=== PATIENT | male | born 1965 | race Caucasian/White ===

== ENCOUNTER → 2016-06-23 | Outpatient (CLI) | payer OTHER ==
[~2016-06-23] MED LIST: ACET-1138 PO; ASPEC81 PO; GLIM4TAB2 PO; LISI-461 PO; OXYC1TAB3 PO
[2016-06-23 17:37] LABS: HEMATOCRIT 45.2 % (42-52); MEAN CELL VOLUME 90.6 fL (80-100); MEAN CORPUSCULAR HEMOGLOBIN 30.1 pg (25-34); MEAN CORPUSCULAR HGB CONC 33.2 g/dl (32-36); MEAN PLATELET VOLUME 10.5 fL (7.4-10.4); PLATELET COUNT 287 K/uL (130-400); RED BLOOD COUNT 4.99 M/uL (4.7-6.1); WHITE BLOOD COUNT 8.05 K/uL (4.8-10.8)
[2016-06-23 17:47] LABS: ALT/SGPT 69 U/L (12-78); BLOOD UREA NITROGEN 14 mg/dl (7-18); BUN/CREATININE RATIO 13.9 (10-20); CALCIUM 8.9 mg/dl (8.5-10.1); CARBON DIOXIDE 20 mmol/L (21-32); CHLORIDE 106 mmol/L (98-107); CHOLESTEROL 173 mg/dl (0-200); GLUCOSE 227 mg/dl (70-99); SODIUM 139 mmol/L (136-145)
[2016-06-23 17:58] LABS: ALB/GLOB RATIO 0.9 (0.9-2); ALKALINE PHOSPHATASE 60 U/L (45-117); AST/SGOT 43 U/L (15-37); CHOLESTEROL/HDL RATIO 4.9; HDL CHOLESTEROL 35 mg/dl; LDL CHOLESTEROL CALCULATED 104 mg/dl; TRIGLYCERIDES 169 mg/dl (0-150); VERY LOW DENSITY LIPOPROT CALC 34 mg/dl
[2016-06-24 05:50] LABS: ESTIMATED AVERAGE GLUCOSE 272 mg/dl; HA1C FLAG Normal (Normal)
== END | disposition home or self-care (01) ==
LOC: C.LABBFT 13:28
PROVIDERS: ATTEND Internal Medicine
DX: E11.29 Type 2 diabetes mellitus with other diabetic kidney complication (principal)

== ENCOUNTER → 2016-08-27 | Outpatient (CLI) | payer OTHER ==
--- NOTE | 2016-08-27 15:45 | DIAGNOSTIC IMAGING REPORT ---
RIGHT LOWER EXTREMITY VENOUS DOPPLER HISTORY: Right leg pain and swelling. COMPARISON STUDY: None. FINDINGS: There is normal compressibility, flow, and augmentation within the right lower extremity deep venous system. IMPRESSION: No DVT within the right lower extremity Electronically signed by: Chava Solis M.D. 08/27/2016 3:43 PM Dictated Date/Time: 08/27/2016 3:43 PM
== END | disposition home or self-care (01) ==
LOC: C.ULTR 15:02
PROVIDERS: ATTEND Internal Medicine
DX: M79.604 Pain in right leg (principal); M79.89 Other specified soft tissue disorders

== ENCOUNTER → 2016-12-31 | Outpatient (CLI) | payer OTHER ==
[2016-12-31 17:32] LABS: HEMATOCRIT 48.7 % (42-52); MEAN CELL VOLUME 94.7 fL (80-100); MEAN CORPUSCULAR HEMOGLOBIN 30.7 pg (25-34); MEAN CORPUSCULAR HGB CONC 32.4 g/dl (32-36); MEAN PLATELET VOLUME 10.4 fL (7.4-10.4); PLATELET COUNT 288 K/uL (130-400); RED BLOOD COUNT 5.14 M/uL (4.7-6.1)
[2016-12-31 17:43] LABS: ALT/SGPT 53 U/L (12-78); AST/SGOT 20 U/L (15-37); BLOOD UREA NITROGEN 19 mg/dl (7-18); BUN/CREATININE RATIO 18.8 (10-20); CALCIUM 8.8 mg/dl (8.5-10.1); CARBON DIOXIDE 24 mmol/L (21-32); CHLORIDE 104 mmol/L (98-107); CREATININE 0.99 mg/dl (0.60-1.40); GLUCOSE 244 mg/dl (70-99); POTASSIUM 4.3 mmol/L (3.5-5.1); SODIUM 135 mmol/L (136-145)
[2016-12-31 17:53] LABS: ALB/GLOB RATIO 0.8 (0.9-2); ALKALINE PHOSPHATASE 72 U/L (45-117); CHOLESTEROL 162 mg/dl (0-200); CHOLESTEROL/HDL RATIO 5.2; HDL CHOLESTEROL 31 mg/dl; LDL CHOLESTEROL CALCULATED 100 mg/dl; PROSTATE SPECIFIC ANTIGEN 0.162 ng/ml (0.000-4.000); TRIGLYCERIDES 156 mg/dl (0-150); VERY LOW DENSITY LIPOPROT CALC 31 mg/dl
[2017-01-01 06:51] LABS: ESTIMATED AVERAGE GLUCOSE 272 mg/dl; HA1C FLAG Normal (Normal)
== END | disposition home or self-care (01) ==
LOC: C.LABBFT 12:47
PROVIDERS: ATTEND Internal Medicine
DX: E11.29 Type 2 diabetes mellitus with other diabetic kidney complication (principal); Z12.5 Encounter for screening for malignant neoplasm of prostate

== ENCOUNTER → 2017-05-02 | Outpatient (CLI) | payer OTHER ==
[2017-05-02 18:23] LABS: ALT/SGPT 52 U/L (12-78); BLOOD UREA NITROGEN 16 mg/dl (7-18); BUN/CREATININE RATIO 16.6 (10-20); CALCIUM 8.9 mg/dl (8.5-10.1); CARBON DIOXIDE 23 mmol/L (21-32); CHLORIDE 105 mmol/L (98-107); CHOLESTEROL 186 mg/dl (0-200); CREATININE 0.98 mg/dl (0.60-1.40); GLUCOSE 155 mg/dl (70-99); SODIUM 135 mmol/L (136-145); TRIGLYCERIDES 135 mg/dl (0-150); VERY LOW DENSITY LIPOPROT CALC 27 mg/dl
[2017-05-02 18:31] LABS: RATIO 73.4 mcg/mg (0-30.0)
[2017-05-02 18:33] LABS: ALB/GLOB RATIO 0.9 (0.9-2); ALKALINE PHOSPHATASE 55 U/L (45-117); AST/SGOT 26 U/L (15-37); HDL CHOLESTEROL 31 mg/dl; LDL CHOLESTEROL CALCULATED 128 mg/dl
[2017-05-03 07:39] LABS: ESTIMATED AVERAGE GLUCOSE 223 mg/dl; HA1C FLAG Normal (Normal)
== END | disposition home or self-care (01) ==
LOC: C.LABBFT 12:33
PROVIDERS: ATTEND Internal Medicine
DX: E11.29 Type 2 diabetes mellitus with other diabetic kidney complication (principal); E11.65 Type 2 diabetes mellitus with hyperglycemia

== ENCOUNTER 2020-04-27 15:08 | Inpatient (IN) ==
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
[2020-04-27 15:54] LABS: Basophils # (auto) 0.03 K/uL (0-0.2); Basophils % (auto) 0.3 %; Eosinophils # (auto) 0.54 K/uL (0-0.5); Eosinophils % (auto) 4.6 %; Hematocrit (blood only) 43.6 % (42-52); Hemoglobin 14.6 g/dL (14.0-18.0); Immature Granulocytes # (auto) 0.03 K/uL (0.00-0.02); Immature Granulocytes % (auto) 0.3 %; Lymphocytes # (auto) 2.36 K/uL (1.2-3.4); Lymphocytes % (auto) 20.1 %; Mean Corpuscular Hemoglobin 31.2 pg (25-34); Mean Corpuscular Hgb Conc 33.5 g/dL (32-36); Mean Corpuscular Volume 93.2 fL (80-100); Mean Platelet Volume 10.1 fL (7.4-10.4); Monocytes # (auto) 0.88 K/uL (0.11-0.59); Monocytes % (auto) 7.5 %; Neutrophils % (auto) 67.2 %; Platelet Count 281 K/uL (130-400); RDW Coefficient of Variation 13.3 % (11.5-14.5); RDW Standard Deviation 45.1 fL (36.4-46.3); Red Blood Count 4.68 M/uL (4.7-6.1); White Blood Count 11.74 K/uL (4.8-10.8)
[2020-04-27 16:10] LABS: Blood Urea Nitrogen 14 mg/dl (7-18); Carbon Dioxide 25 mmol/L (21-32); Chloride 107 mmol/L (98-107); Sodium 138 mmol/L (136-145)
[2020-04-27 16:11] LABS: Alanine Aminotransferase 23 U/L (12-78); Albumin Level 3.2 gm/dl (3.4-5.0); Aspartate Aminotransferase 14 U/L (15-37); BUN Creatinine Ratio 11.7 (10-20); Est GFR (Non-African American) 70.7; Glucose 231 mg/dl (70-99); INR 1.2 (0.9-1.1); Magnesium 1.9 mg/dl (1.8-2.4); Partial Thromboplastin Time 28.8 Seconds (21.0-31.0); Prothrombin Time 12.1 Seconds (9.0-12.0)
[2020-04-27 16:13] LABS: Albumin Globulin Ratio 0.7 (0.9-2); Alkaline Phosphatase 71 U/L (45-117); Bilirubin,Total 1.2 mg/dl (0.2-1); Globulin 4.5 gm/dl (2.5-4.0); Total Protein 7.7 gm/dl (6.4-8.2)
--- NOTE | 2020-04-27 16:59 | Ultrasound Report ---
RIGHT LOWER EXTREMITY VENOUS DOPPLER HISTORY: R leg pain COMPARISON STUDY: Right leg venous Doppler 01/19/2019. FINDINGS: The right common femoral vein is patent. There is occlusive thrombus seen within the right superficial femoral and popliteal veins. There is also thrombus seen within the majority of the right calf vessels. IMPRESSION: Extensive right lower extremity deep vein thrombosis described above which has progressed in the inte rval. ACT 112: Negative or not required by law. Electronically signed by: Chava Solis M.D. 04/27/2020 4:57 PM
[2020-04-27] MEDS ORDERED: OPTIRAY 320 125ml IV ONE (18:03)
--- NOTE | 2020-04-27 18:47 | CT Scan Report ---
CHEST CTA for PULMONARY ARTERIES CT DOSE: 878.10 mGy.cm HISTORY: Evaluate for pulmonary embolus. Shortness of breath. extensive DVT TECHNIQUE: Multiaxial CT images of the chest were performed following the intravenous administration of contrast to evaluate the pulmonary arteries. Maximal intensity projection images were also obtaine d. A dose lowering technique was utilized adhering to the principles of ALARA. COMPARISON STUDY: None. FINDINGS: Limited views of the upper abdomen demonstrate a normal liver, spleen, and adrenal glands. No pleural or pericardial effusions. There is flattening of the interventricular septum consistent wi th right-sided heart strain. There is extensive bilateral pulmonary emboli most pronounced on the rig ht. There is a saddle embolus involving the main pulmonary arteries. No suspicious lytic or blastic o sseous lesions. No mediastinal hilar lymphadenopathy. Normal esophagus. Normal caliber thoracic aorta with no evidence for dissection. No pneumothorax. The central airways appear patent. A few small re ear scarlike densities within the right upper lobe anteriorly. Otherwise, the lungs are clear. No mati dence for pulmonary infarction at this time. IMPRESSION: Extensive bilateral pulmonary emboli including a saddle embolus at the main pulmonary arteries. There is associated right heart strain. ACT 112: Negative or not required by law. Electronically signed by: Chava Solis M.D. 04/27/2020 6:46 PM
[2020-04-27] MEDS ORDERED: Heparin IV Adult Wt-Based Standard WITH Bolus Protocol IV STA (19:15)
--- NOTE | 2020-04-27 20:12 | Emergency Department Note ---
ED Visit Note The patient was seen and examined with Carlos Merino PA-C I agree with the history, physical and findings. Please see the note for disposition and d etails. Patient being evaluated by internal medicine. Critical care consulted for his saddle PE and extensive DVT. Vital signs stable. Troponin normal. .
[2020-04-27] MEDS ORDERED: HEPARIN SOD (PORCINE) 1000 UNIT/ML 10 ML VIAL ONE (20:32)
[2020-04-27] MEDS: HEPARIN SODIUM/DEXTROSE 25,000 UNITS/500 ML BAG IV SCH (20:55)
[2020-04-27] MEDS ORDERED: CARBOHYDRATES FOR HYPOGLYCEMIA PO PRN (21:39)
[2020-04-27] MEDS ORDERED: ONDANSETRON INJ 2 MG/ML 2 ML VIAL IV PRN (21:39)
[2020-04-27] MEDS ORDERED: GLUCOSE 40% GEL 15 GM TUBE PO PRN (21:39)
[2020-04-27] MEDS ORDERED: GLUCAGON FOR INJ 1 MG VIAL SQ PRN (21:39)
[2020-04-27] MEDS ORDERED: GLUCOSE 10 TABS/TUBE PO PRN (21:39)
[2020-04-27] MEDS ORDERED: DEXTROSE 50% 50 ML SYRINGE IV PRN (21:39)
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
[2020-04-27] MEDS: lisinopril 10 MG TAB PO SCH (22:19)
[2020-04-27] MEDS: SILDENAFIL CITRATE 20 MG TABLET PO SCH (22:19)
[2020-04-27] MEDS: INSULIN ASPART 100 UNITS/ML 3 ML PEN SC SCH (22:22)
[2020-04-28 03:39] LABS: Basophils # (auto) 0.03 K/uL (0-0.2); Basophils % (auto) 0.2 %; Eosinophils # (auto) 0.54 K/uL (0-0.5); Eosinophils % (auto) 4.5 %; Hematocrit (blood only) 42.7 % (42-52); Immature Granulocytes # (auto) 0.03 K/uL (0.00-0.02); Immature Granulocytes % (auto) 0.2 %; Lymphocytes % (auto) 29.8 %; Mean Corpuscular Hemoglobin 30.4 pg (25-34); Mean Corpuscular Hgb Conc 32.8 g/dL (32-36); Mean Corpuscular Volume 92.8 fL (80-100); Mean Platelet Volume 9.9 fL (7.4-10.4); Monocytes # (auto) 0.88 K/uL (0.11-0.59); Monocytes % (auto) 7.3 %; Neutrophils # (auto) 7.02 K/uL (1.4-6.5); Platelet Count 282 K/uL (130-400); RDW Coefficient of Variation 13.3 % (11.5-14.5); RDW Standard Deviation 45.3 fL (36.4-46.3)
[2020-04-28 03:51] LABS: INR 1.2 (0.9-1.1); Partial Thromboplastin Ratio 1.4; Partial Thromboplastin Time 39.6 Seconds (21.0-31.0); Prothrombin Time 12.1 Seconds (9.0-12.0)
[2020-04-28 03:56] LABS: Albumin Level 2.9 gm/dl (3.4-5.0); BUN Creatinine Ratio 11.8 (10-20); Calcium 8.7 mg/dl (8.5-10.1); Creatinine Clr Calc Pharmacy 88.7 ml/min; Est GFR (African American) 86.5; Est GFR (Non-African American) 74.6; Magnesium 2.3 mg/dl (1.8-2.4); Potassium 3.9 mmol/L (3.5-5.1)
[2020-04-28 04:01] LABS: Albumin Globulin Ratio 0.7 (0.9-2); Bilirubin,Total 0.8 mg/dl (0.2-1); Globulin 4.3 gm/dl (2.5-4.0); Total Protein 7.2 gm/dl (6.4-8.2); Troponin I 0.018 ng/ml (0-0.045)
[2020-04-28] MEDS: oxyCODONE HCL IR 5 MG TAB (IMMEDIATE RELEASE) PO PRN ×2 (05:44→20:15)
[2020-04-28] MEDS ORDERED: HYDROmorphone INJ 0.5 MG/0.5 ML SYR IV STA (05:51)
[2020-04-28] MEDS ORDERED: HYDROmorphone INJ 0.5 MG/0.5 ML SYR ONE (05:53)
[2020-04-28 06:52] LABS: Estimated Average Glucose 243 mg/dl; Hemoglobin A1C 10.1 % (4.5-5.6)
[2020-04-28] MEDS ORDERED: INSULIN HUMAN 70% NPH/30% REGULAR SQ SCH (08:00)
[2020-04-28] MEDS: INSULIN ASPART 100 UNITS/ML 3 ML PEN SC SCH ×4 (08:49→20:18)
[2020-04-28] MEDS: SILDENAFIL CITRATE 20 MG TABLET PO SCH ×3 (08:55→20:17)
[2020-04-28] MEDS ORDERED: PHARMACY GLYCEMIC MGMT CONSULT PRN (09:11)
--- NOTE | 2020-04-28 09:19 | Pulmonary Consultation ---
Date of Consultation April 28, 2020 Assessment & Plan (1) Saddle pulmonary embolus: (2) DVT (deep venous thrombosis): (3) Pulmonary hypertension: Impression: 54-year-old male with right lower extremity DVT and associated PE. The clot burden is high however the patient is hemodynamically stable with normal blood pressure. He is not tachycardic and is requiring minimal amount of oxygen. He never had any respiratory symptoms currently. No indication for systemic thrombolysis. Recommendations: 1. PE: Clot burden identified on the CT scan does not correlate with prognosis and given the patient's excellent hemodynamics and lack of elevated troponin, would favor continued management with heparin infusion. He can transition to oral anticoagulants within the next 24 to 48 hours based on clinical stability. Given the fact that this is his second event in this event appears to be relatively unprovoked, would favor lifelong anticoagulation. 2. DVT: It appears that this is a chronic finding so there is no indication for catheter-based thrombolysis of the lower extremity DVT. He may require compression stockings and elevation of the leg. 3. We will follow-up with echocardiogram. Will check BNP to complete risk stratification. Troponins were normal. We will continue to follow with you. Please contact us if we can be of additional assistance History of Present Illness Attending Physician: Yessenia Darby MD History of Present Illness Asked by hospitalist to evaluate this patient with submassive PE. History is obtained from review electronic medical record as well as discussion with the patient. Patient is a 54-year-old male with a history of traumatic amputation of the left lower extremity. He developed an aching sharp pain in his right leg which became persistent and prompted him to seek attention in the emergency room. He was found to have extensive DVT and a CT angiogram was ordered. This revealed extensive pulmonary emboli including saddle embolus. The patient never had any respiratory complaints and specifically denies any chest pain, palpitations, syncope, or presyncope. He is not had any hemoptysis. The patient does have a history of a prior DVT about a year ago. He states this was in the setting of an acute illness with a complicated skin infection. He was treated with anticoagulants then without any significant complication but they were discontinued after several months. He has no family history of bleeding or clotting disorders that he is aware of. Allergies Allergy/AdvReac Type Severity Reaction Status Date / Time metformin AdvReac diarrhea Verified 04/27/20 18:22 Home Medications Medication Instructions Recorded Confirmed Type lisinopril 10 mg tablet 10 mg PO HS #90 tab 06/15/19 04/27/20 Rx insulin NPH and regular human 80 unit SUBCUT BIDM 04/27/20 04/27/20 History [Novolin 70/30 U-100 Insulin] oxycodone 5 mg PO .Q4-6HRS PRN 04/27/20 04/27/20 History sildenafil (pulm.hypertension) See Rx Instructions PO DAILY PRN 04/27/20 04/27/20 History Patient History Medical History (Updated 04/28/20 @ 04:05 by Yonis Styles MD) Pulmonary hypertension Uncontrolled type 2 diabetes mellitus with microalbuminuria, with long-term current use of insulin Surgical History History of hip surgery History of left lower extremity amputation Family History Mother Arthritis Depression Diabetes Father Diabetes Hypertension Lung disease Stroke Sister Diabetes Denies family history of Ovarian cancer Prostate cancer Myocardial infarction Breast cancer Colorectal cancer Social History Smoking Status: Never smoker Second Hand Exposure: No; Hx Alcohol Use: Yes Hx Substance Use: No Preferred Language: Czech Communication Ability: Effective Beliefs That Will Affect Care: None marital status: Current Living Situation: Alone current occupational status: disabled and other current occupation: on disability Other Information That Helps Us Care for You: No Feels Safe at Home: Yes Safety Concerns: Feels Safe At This Time Physical Activity Frequency: 3-4 Times per Week Assistive Devices: Walker and Wheelchair Review of Systems Review of Systems: Please refer to admission H&P. I have no additions or deletions Physical Exam Constitutional: WD/WN, vitals as above Neck: trachea midline, no thyromegaly Respiratory: normal respiratory effort, lungs clear to auscultation Cardiovascular: RRR, no murmur, no edema Gastrointestinal (Abdomen): normal bowel sounds, soft, nontender, no hepatosplenomegaly Musculoskeletal: Status post left leg amputation The right leg is slightly tender to palpation. Homans positive. No evidence of phlegmasia currently Skin: no rashes, warm and dry Neurologic: Nonfocal exam Lymphatic: no cervical lymphadenopathy Results & Data Results & Data ([facility]) Vital Signs (Past 12 Hours) Vital Signs Temp Pulse Pulse Resp BP BP Pulse Ox 04/28/20 04:27 82 21 122/79 94 04/28/20 04:00 36.6 C 04/28/20 01:55 79 18 124/85 95 04/28/20 00:55 86 19 115/83 90 04/28/20 00:00 36.8 C 04/27/20 21:46 36.8 C 91 H 17 172/99 H 96 04/27/20 21:42 36.8 C 04/27/20 21:35 91 H 21 172/99 H 92 Laboratory Results 04/28/20 03:20 04/28/20 03:[address] angiogram was independently reviewed. There are extensive filling defects in the bilateral pulmonary arteries with saddle embolus. No significant parenc hymal abnormalities identified and no significant adenopathy. Duplex ultrasound of the lower extremities from 04/27/2020 demonstrated extensive right-sided superficial femoral and popliteal clot extending into the calf. The common femoral vein is patent PG Care Time/CCT Total # of Minutes Spent Total Time Spent with Patient: Total time spent is greater than 50% in coordination of care (as documented) at patient's floor/unit and/or counseling patient: Coding Level of Care Code 41994 Office/OBS Consult Lvl 4 Diagnoses Saddle pulmonary embolus I26.92 DVT (deep venous thrombosis) I82.409 Pulmonary hypertension I27.20
[2020-04-28 10:21] LABS: Partial Thromboplastin Ratio 1.5; Partial Thromboplastin Time 41.9 Seconds (21.0-31.0)
--- NOTE | 2020-04-28 11:12 | XCELERA ---
[id number] \\[id number]
--- NOTE | 2020-04-28 13:26 | Pharmacy Report ---
Pharmacy Glycemic Short Note 2 - Date of Service April 28, 2020 - Glycemic Short BSG Results (Last 24 hours): 04/27/20 04/27/20 04/28/20 15:39 22:16 03:20 Glucose 231 H 222 H POC Glucose 207 H 04/28/20 04/28/20 07:22 11:03 Glucose POC Glucose 205 H 295 H OUTPATIENT ANTIDIABETIC REGIMEN: * 70/30 80 units BIDM * A1c: 10.1% 04/28/20 ASSESSMENT: * Patient found to have DVT and Saddle PE initiated on heparin drip (in dextrose). * BSGs have been moderately elevated since admission. It does not appear that the patient received an evening dose of insulin likely contributing to this. He did receive his home dose of 80 units 70/30 this morning. I will switch to a lantus/novolog regimen while admitted for easier titration/dose changes. Lantus scale will start tonight with dinner. I am hesitant to be too aggressive with basal insulin right away given unknown true needs with an elevated A1c. * Patient is tolerating a diet and remains on heparin infusion PLAN FOR INPATIENT GLYCEMIC CONTROL: * Hold outpatient oral diabetes medications * Basal insulin * 70/30: 80 units X 1 this morning * Lantus per scale 30,40,50 units units SQ BID (first dose at dinner time)- See MAR for details * Bolus insulin * NovoLog per scale ACHS or Q6hrs while NPO * Goal Range: Low 110 mg/dL - High 140 mg/dL * Correction Factor: 20 mg/dL/unit (was 25 for breakfast and lunch) * Nutritional / Prandial insulin per carb ratio of 1 unit per 6 grams CHO consumed (was 10 for breakfast and lunch)
--- NOTE | 2020-04-28 15:03 | Hospitalist Progress Note ---
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 He was previously treated in 01/2018 with 3 months of Eliquis This is a submassive PE, hemodynamically stable, requiring minimal amount of supplemental oxygen, troponin is negative serially Appreciate pulmonology consultation Echocardiogram with mildly decreased RV function, LVEF 60-65% Upon admission, his case was discussed with the ICU regarding possible need for directed TPA. Plan is to watch the patient on heparin, and if any acute decompensation directed TPA will be undertaken. -Continue IV heparin -Consult case management to beatty out Xarelto for him to see if his cost affordable; patient prefers not to do Coumadin as he does not want to have recurrent blood draws -Check proBNP to complete risk stratification -He will need lifelong anticoagulation-I discussed this with the patient and he did not seem too keen on the idea -Continue supplemental O2 to keep pulse ox greater than 92% (2) Bilateral pulmonary embolism: See above (3) DVT (deep venous thrombosis): Right lower extremity, extensive Continue anticoagulation as above -May require compression stockings and elevation of the leg (4) Hyperlipidemia: On no medications -Fasting lipid panel here with LDL 95, HDL 26, total cholesterol 150 (5) HTN (hypertension): Blood pressures are mildly elevated here, but he takes lisinopril for microalbuminuria in the setting of diabetes mellitus Continue lisinopril (6) Uncontrolled type 2 diabetes mellitus with microalbuminuria, with long-term current use of insulin: Significantly uncontrolled diabetes, hemoglobin A1c here is 10.1% Consult glycemic management for persistent hyperglycemia here On NPH 70/30 at home and here (7) Phantom pain after amputation of lower extremity: Continue oxycodone as needed for pain (8) Male erectile disorder of organic origin: Was prescribed sildenafil as an outpatient for ED, not for pulmonary hypertension as per patient Discontinue scheduled sildenafil here Disposition-continued stay on PCU Admission and Anticipated Discharge Date Admission Date: April 27, 2020 Subjective Patient reports feeling well, denies chest pain or shortness of breath but remains on 2 L nasal cannula. Denies nausea or vomiting. He is worried about being able to afford the anticoagulation and states that he does not want to go on Coumadin as he does not want to get frequent lab draws for INR checks. He is eating and drinking well. Review of Systems Review of Systems: All systems reviewed & are unremarkable except as noted in HPI & below Physical Exam Constitutional: WD/WN, vitals as above + obese; no acute distress Eyes: + anicteric sclerae Neck: trachea midline, no thyromegaly Respiratory: normal respiratory effort Auscultation: + crackles (Mild at bases that clears with deep inspiration); no rhonchi and no wheezes Cardiovascular: RRR, no murmur, no edema Extremities: no calf tenderness (On the right) Chest (Breasts): Chest: normal inspection of chest Gastrointestinal (Abdomen): normal bowel sounds, soft, nontender, no hepatosplenomegaly Musculoskeletal: Extremities: + extremities abnormal to inspection (Left lower extremity amputated), no cyanosis and no clubbing Skin: no rashes, warm and dry Neurologic: moves all extremities and awake; no focal motor deficits Psychiatric: A+Ox3, euthymic affect Lymphatic: no lymphedema Results & Data Results & Data ([facility]) Vital Signs (Past 12 Hours) Vital Signs Temp Pulse Pulse Resp BP Pulse Ox 04/28/20 12:00 77 04/28/20 09:00 80 19 94 04/28/20 08:00 73 13 94 04/28/20 07:27 79 22 128/95 95 04/28/20 07:00 71 15 95 04/28/20 04:27 82 21 122/79 94 04/28/20 04:00 36.6 C Laboratory Results 04/28/20 04/28/20 04/28/20 Range/Units 20:14 19:33 19:33 WBC (4.8-10.8) K/uL RBC (4.7-6.1) M/uL Hgb (14.0-18.0) g/dL Hct (42-52) % MCV (80-100) fL MCH (25-34) pg MCHC (32-36) g/dL RDW Std Deviation (36.4-46.3) fL RDW Coeff of Kathrin (11.5-14.5) % Plt Count (130-400) K/uL MPV (7.4-10.4) fL Immature Gran % (Auto) % Neut % (Auto) % Lymph % (Auto) % [place] % (Auto) % Eos % (Auto) % Baso % (Auto) % Neut # (Auto) (1.4-6.5) K/uL Lymph # (Auto) (1.2-3.4) K/uL [place] # (Auto) (0.11-0.59) K/uL Eos # (Auto) (0-0.5) K/uL Baso # (Auto) (0-0.2) K/uL Immature Gran # (Auto) (0.00-0.02) K/uL PT (9.0-12.0) Seconds INR (0.9-1.1) APTT 37.3 H (21.0-31.0) Seconds PTT Ratio 1.3 Sodium (136-145) mmol/L Potassium (3.5-5.1) mmol/L Chloride (98-107) mmol/L Carbon Dioxide (21-32) mmol/L Anion Gap (3-11) BUN (7-18) mg/dl Creatinine (0.6-1.4) mg/dl Est Cr Clr Drug Dosing ml/min Est GFR ( Amer) Est GFR (Non-Af Amer) BUN/Creatinine Ratio (10-20) Glucose (70-99) mg/dl POC Glucose 140 H (70-99) mg/dl Estimat Average Glucose mg/dl Hemoglobin A1c (4.5-5.6) % Calcium (8.5-10.1) mg/dl Magnesium (1.8-2.4) mg/dl Total Bilirubin (0.2-1) mg/dl AST (15-37) U/L ALT (12-78) U/L Alkaline Phosphatase (45-117) U/L Troponin I < 0.015 (0-0.045) ng/ml Total Protein (6.4-8.2) gm/dl Albumin (3.4-5.0) gm/dl Globulin (2.5-4.0) gm/dl Albumin/Globulin Ratio (0.9-2) Triglycerides (0-150) mg/dl Cholesterol (0-200) mg/dl LDL Cholesterol, Calc mg/dl VLDL Cholesterol, Calc mg/dl HDL Cholesterol mg/dl Cholesterol/HDL Ratio Nasal Screen MRSA (PCR) (Negative) 12/14/20 12/14/20 12/14/20 Range/Units 16:29 12:43 11:03 WBC (4.8-10.8) K/uL RBC (4.7-6.1) M/uL Hgb (14.0-18.0) g/dL Hct (42-52) % MCV (80-100) fL MCH (25-34) pg MCHC (32-36) g/dL RDW Std Deviation (36.4-46.3) fL RDW Coeff of Kathrin (11.5-14.5) % Plt Count (130-400) K/uL MPV (7.4-10.4) fL Immature Gran % (Auto) % Neut % (Auto) % Lymph % (Auto) % [place] % (Auto) % Eos % (Auto) % Baso % (Auto) % Neut # (Auto) (1.4-6.5) K/uL Lymph # (Auto) (1.2-3.4) K/uL [place] # (Auto) (0.11-0.59) K/uL Eos # (Auto) (0-0.5) K/uL Baso # (Auto) (0-0.2) K/uL Immature Gran # (Auto) (0.00-0.02) K/uL PT (9.0-12.0) Seconds INR (0.9-1.1) APTT (21.0-31.0) Seconds PTT Ratio Sodium (136-145) mmol/L Potassium (3.5-5.1) mmol/L Chloride (98-107) mmol/L Carbon Dioxide (21-32) mmol/L Anion Gap (3-11) BUN (7-18) mg/dl Creatinine (0.6-1.4) mg/dl Est Cr Clr Drug Dosing ml/min Est GFR ( Amer) Est GFR (Non-Af Amer) BUN/Creatinine Ratio (10-20) Glucose (70-99) mg/dl POC Glucose 212 H 295 H (70-99) mg/dl Estimat Average Glucose mg/dl Hemoglobin A1c (4.5-5.6) % Calcium (8.5-10.1) mg/dl Magnesium (1.8-2.4) mg/dl Total Bilirubin (0.2-1) mg/dl AST (15-37) U/L ALT (12-78) U/L Alkaline Phosphatase (45-117) U/L Troponin I < 0.015 (0-0.045) ng/ml Total Protein (6.4-8.2) gm/dl Albumin (3.4-5.0) gm/dl Globulin (2.5-4.0) gm/dl Albumin/Globulin Ratio (0.9-2) Triglycerides (0-150) mg/dl Cholesterol (0-200) mg/dl LDL Cholesterol, Calc mg/dl VLDL Cholesterol, Calc mg/dl HDL Cholesterol mg/dl Cholesterol/HDL Ratio Nasal Screen MRSA (PCR) (Negative) 04/28/20 04/28/20 04/28/20 Range/Units 09:58 07:22 03:20 WBC (4.8-10.8) K/uL RBC (4.7-6.1) M/uL Hgb (14.0-18.0) g/dL Hct (42-52) % MCV (80-100) fL MCH (25-34) pg MCHC (32-36) g/dL RDW Std Deviation (36.4-46.3) fL RDW Coeff of Kathrin (11.5-14.5) % Plt Count (130-400) K/uL MPV (7.4-10.4) fL Immature Gran % (Auto) % Neut % (Auto) % Lymph % (Auto) % [place] % (Auto) % Eos % (Auto) % Baso % (Auto) % Neut # (Auto) (1.4-6.5) K/uL Lymph # (Auto) (1.2-3.4) K/uL [place] # (Auto) (0.11-0.59) K/uL Eos # (Auto) (0-0.5) K/uL Baso # (Auto) (0-0.2) K/uL Immature Gran # (Auto) (0.00-0.02) K/uL PT (9.0-12.0) Seconds INR (0.9-1.1) APTT 41.9 H (21.0-31.0) Seconds PTT Ratio 1.5 Sodium (136-145) mmol/L Potassium (3.5-5.1) mmol/L Chloride (98-107) mmol/L Carbon Dioxide (21-32) mmol/L Anion Gap (3-11) BUN (7-18) mg/dl Creatinine (0.6-1.4) mg/dl Est Cr Clr Drug Dosing ml/min Est GFR ( Amer) Est GFR (Non-Af Amer) BUN/Creatinine Ratio (10-20) Glucose (70-99) mg/dl POC Glucose 205 H (70-99) mg/dl Estimat Average Glucose 243 mg/dl Hemoglobin A1c 10.1 H (4.5-5.6) % Calcium (8.5-10.1) mg/dl Magnesium (1.8-2.4) mg/dl Total Bilirubin (0.2-1) mg/dl AST (15-37) U/L ALT (12-78) U/L Alkaline Phosphatase (45-117) U/L Troponin I (0-0.045) ng/ml Total Protein (6.4-8.2) gm/dl Albumin (3.4-5.0) gm/dl Globulin (2.5-4.0) gm/dl Albumin/Globulin Ratio (0.9-2) Triglycerides (0-150) mg/dl Cholesterol (0-200) mg/dl LDL Cholesterol, Calc mg/dl VLDL Cholesterol, Calc mg/dl HDL Cholesterol mg/dl Cholesterol/HDL Ratio Nasal Screen MRSA (PCR) (Negative) 04/28/20 04/28/20 04/28/20 Range/Units 03:20 03:20 03:20 WBC 12.10 H (4.8-10.8) K/uL RBC 4.60 L (4.7-6.1) M/uL Hgb 14.0 (14.0-18.0) g/dL Hct 42.7 (42-52) % MCV 92.8 (80-100) fL MCH 30.4 (25-34) pg MCHC 32.8 (32-36) g/dL RDW Std Deviation 45.3 (36.4-46.3) fL RDW Coeff of Kathrin 13.3 (11.5-14.5) % Plt Count 282 (130-400) K/uL MPV 9.9 (7.4-10.4) fL Immature Gran % (Auto) 0.2 % Neut % (Auto) 58.0 % Lymph % (Auto) 29.8 % [place] % (Auto) 7.3 % Eos % (Auto) 4.5 % Baso % (Auto) 0.2 % Neut # (Auto) 7.02 H (1.4-6.5) K/uL Lymph # (Auto) 3.60 H (1.2-3.4) K/uL [place] # (Auto) 0.88 H (0.11-0.59) K/uL Eos # (Auto) 0.54 H (0-0.5) K/uL Baso # (Auto) 0.03 (0-0.2) K/uL Immature Gran # (Auto) 0.03 H (0.00-0.02) K/uL PT 12.1 H (9.0-12.0) Seconds INR 1.2 H (0.9-1.1) APTT 39.6 H (21.0-31.0) Seconds PTT Ratio 1.4 Sodium 139 (136-145) mmol/L Potassium 3.9 (3.5-5.1) mmol/L Chloride 105 (98-107) mmol/L Carbon Dioxide 27 (21-32) mmol/L Anion Gap 7.0 (3-11) BUN 13 (7-18) mg/dl Creatinine 1.10 (0.6-1.4) mg/dl Est Cr Clr Drug Dosing 88.7 ml/min Est GFR ( Amer) 86.5 Est GFR (Non-Af Amer) 74.6 BUN/Creatinine Ratio 11.8 (10-20) Glucose 222 H (70-99) mg/dl POC Glucose (70-99) mg/dl Estimat Average Glucose mg/dl Hemoglobin A1c (4.5-5.6) % Calcium 8.7 (8.5-10.1) mg/dl Magnesium 2.3 (1.8-2.4) mg/dl Total Bilirubin 0.8 (0.2-1) mg/dl AST 15 (15-37) U/L ALT 24 (12-78) U/L Alkaline Phosphatase 68 (45-117) U/L Troponin I 0.018 (0-0.045) ng/ml Total Protein 7.2 (6.4-8.2) gm/dl Albumin 2.9 L (3.4-5.0) gm/dl Globulin 4.3 H (2.5-4.0) gm/dl Albumin/Globulin Ratio 0.7 L (0.9-2) Triglycerides 145 (0-150) mg/dl Cholesterol 150 (0-200) mg/dl LDL Cholesterol, Calc 95 mg/dl VLDL Cholesterol, Calc 29 mg/dl HDL Cholesterol 26 mg/dl Cholesterol/HDL Ratio 6 Nasal Screen MRSA (PCR) (Negative) 04/27/20 04/27/20 Range/Units 22:20 22:16 WBC (4.8-10.8) K/uL RBC (4.7-6.1) M/uL Hgb (14.0-18.0) g/dL Hct (42-52) % MCV (80-100) fL MCH (25-34) pg MCHC (32-36) g/dL RDW Std Deviation (36.4-46.3) fL RDW Coeff of Kathrin (11.5-14.5) % Plt Count (130-400) K/uL MPV (7.4-10.4) fL Immature Gran % (Auto) % Neut % (Auto) % Lymph % (Auto) % [place] % (Auto) % Eos % (Auto) % Baso % (Auto) % Neut # (Auto) (1.4-6.5) K/uL Lymph # (Auto) (1.2-3.4) K/uL [place] # (Auto) (0.11-0.59) K/uL Eos # (Auto) (0-0.5) K/uL Baso # (Auto) (0-0.2) K/uL Immature Gran # (Auto) (0.00-0.02) K/uL PT (9.0-12.0) Seconds INR (0.9-1.1) APTT (21.0-31.0) Seconds PTT Ratio Sodium (136-145) mmol/L Potassium (3.5-5.1) mmol/L Chloride (98-107) mmol/L Carbon Dioxide (21-32) mmol/L Anion Gap (3-11) BUN (7-18) mg/dl Creatinine (0.6-1.4) mg/dl Est Cr Clr Drug Dosing ml/min Est GFR ( Amer) Est GFR (Non-Af Amer) BUN/Creatinine Ratio (10-20) Glucose (70-99) mg/dl POC Glucose 207 H (70-99) mg/dl Estimat Average Glucose mg/dl Hemoglobin A1c (4.5-5.6) % Calcium (8.5-10.1) mg/dl Magnesium (1.8-2.4) mg/dl Total Bilirubin (0.2-1) mg/dl AST (15-37) U/L ALT (12-78) U/L Alkaline Phosphatase (45-117) U/L Troponin I (0-0.045) ng/ml Total Protein (6.4-8.2) gm/dl Albumin (3.4-5.0) gm/dl Globulin (2.5-4.0) gm/dl Albumin/Globulin Ratio (0.9-2) Triglycerides (0-150) mg/dl Cholesterol (0-200) mg/dl LDL Cholesterol, Calc mg/dl VLDL Cholesterol, Calc mg/dl HDL Cholesterol mg/dl Cholesterol/HDL Ratio Nasal Screen MRSA (PCR) Negative (Negative) PG Care Time/CCT Total # of Minutes Spent Total Time Spent with Patient: Total time spent is greater than 50% in coordination of care (as documented) at patient's floor/unit and/or counseling patient: Coding Level of Care Code 83577 Subseq Hosp Care Lvl 3 Diagnoses Saddle pulmonary embolus I26.92 Bilateral pulmonary embolism I26.99 DVT (deep venous thrombosis) I82.409 Hyperlipidemia E78.5 HTN (hypertension) I10 Uncontrolled type 2 diabetes mellitus with microalbuminuria, with long-term current use of insulin E11.29; E11.65; R80.9; Z79.4 Phantom pain after amputation of lower extremity G54.6 Male erectile disorder of organic origin N52.9
[2020-04-28] MEDS: INSULIN GLARGINE SOLOSTAR 100 UNITS/ML 3 ML PEN SC SCH (17:01)
[2020-04-28] MEDS: HEPARIN SODIUM/DEXTROSE 25,000 UNITS/500 ML BAG IV SCH ×2 (17:48→20:04)
--- NOTE | 2020-04-28 19:35 | Electrocardiogram Report ---
Test Reason : Blood Pressure : / mmHG Vent. Rate : 081 BPM Atrial Rate : 081 BPM P-R Int : 154 ms QRS Dur : 082 ms QT Int : 386 ms P-R-T Axes : 046 -01 004 degrees QTc Int : 448 ms Poor data quality, interpretation may be adversely affected Normal sinus rhythm Normal ECG When compared with ECG of 17-JAN-2016 07:56, Criteria for Septal infarct are no longer Present Confirmed by Doug Gandara ([id number]) on 04/28/2020 7:34:50 PM Referred By: REFERRED SELF Confirmed By:Doug Gandara
[2020-04-28 19:58] LABS: Partial Thromboplastin Ratio 1.3; Partial Thromboplastin Time 37.3 Seconds (21.0-31.0)
[2020-04-28] MEDS ORDERED: HEPARIN SOD (PORCINE) 1000 UNIT/ML 10 ML VIAL ONE (20:10)
[2020-04-28] MEDS ORDERED: HEPARIN IV BOLUS 3,000 UNITS in SYRINGE 0 ML IV ONE (20:15)
[2020-04-28] MEDS: lisinopril 10 MG TAB PO SCH (20:17)
[2020-04-29 02:09] LABS: Basophils # (auto) 0.04 K/uL (0-0.2); Basophils % (auto) 0.3 %; Eosinophils # (auto) 0.54 K/uL (0-0.5); Eosinophils % (auto) 4.4 %; Hematocrit (blood only) 43.4 % (42-52); Hemoglobin 14.1 g/dL (14.0-18.0); Immature Granulocytes # (auto) 0.05 K/uL (0.00-0.02); Immature Granulocytes % (auto) 0.4 %; Lymphocytes # (auto) 3.55 K/uL (1.2-3.4); Lymphocytes % (auto) 28.7 %; Mean Corpuscular Hemoglobin 30.6 pg (25-34); Mean Corpuscular Hgb Conc 32.5 g/dL (32-36); Mean Corpuscular Volume 94.1 fL (80-100); Mean Platelet Volume 9.6 fL (7.4-10.4); Monocytes # (auto) 1.01 K/uL (0.11-0.59); Monocytes % (auto) 8.2 %; Neutrophils # (auto) 7.17 K/uL (1.4-6.5); Platelet Count 284 K/uL (130-400); RDW Coefficient of Variation 13.1 % (11.5-14.5); RDW Standard Deviation 45.4 fL (36.4-46.3); Red Blood Count 4.61 M/uL (4.7-6.1); White Blood Count 12.36 K/uL (4.8-10.8)
[2020-04-29 02:29] LABS: INR 1.1 (0.9-1.1); Partial Thromboplastin Ratio 1.9; Prothrombin Time 11.9 Seconds (9.0-12.0)
[2020-04-29 02:32] LABS: Partial Thromboplastin Time 51.9 Seconds (21.0-31.0)
[2020-04-29 03:27] LABS: Alanine Aminotransferase 22 U/L (12-78); Albumin Globulin Ratio 0.7 (0.9-2); Albumin Level 2.9 gm/dl (3.4-5.0); Alkaline Phosphatase 63 U/L (45-117); Aspartate Aminotransferase 15 U/L (15-37); BUN Creatinine Ratio 15.2 (10-20); Bilirubin,Total 0.8 mg/dl (0.2-1); Blood Urea Nitrogen 16 mg/dl (7-18); Calcium 8.8 mg/dl (8.5-10.1); Carbon Dioxide 28 mmol/L (21-32); Chloride 107 mmol/L (98-107); Creatinine Clr Calc Pharmacy 90.4 ml/min; Est GFR (African American) 88.5; Est GFR (Non-African American) 76.3; Globulin 4.2 gm/dl (2.5-4.0); Glucose 101 mg/dl (70-99); Magnesium 2.3 mg/dl (1.8-2.4); NT Pro B Type Natriuretic Pept 769 pg/ml (0-900); Potassium 3.8 mmol/L (3.5-5.1); Sodium 140 mmol/L (136-145); Total Protein 7.1 gm/dl (6.4-8.2)
[2020-04-29 03:34] LABS: Troponin I < 0.015 ng/ml (0-0.045)
--- NOTE | 2020-04-29 05:22 | Electrocardiogram Report ---
Test Reason : Blood Pressure : / mmHG Vent. Rate : 074 BPM Atrial Rate : 074 BPM P-R Int : 152 ms QRS Dur : 084 ms QT Int : 426 ms P-R-T Axes : 047 016 010 degrees QTc Int : 472 ms Normal sinus rhythm Normal ECG When compared with ECG of 27-APR-2020 19:20, No significant change was found Confirmed by Doug Gandara ([id number]) on 04/29/2020 5:22:25 AM Referred By: REFERRED SELF Confirmed By:Doug Gandara
[2020-04-29] MEDS: ACETAMINOPHEN 325 MG TAB PO PRN (06:24)
--- NOTE | 2020-04-29 08:16 | Pulmonology Progress Note ---
Date of Service April 29, 2020 Assessment & Plan (1) Saddle pulmonary embolus: (2) DVT (deep venous thrombosis): (3) Pulmonary hypertension: Impression: 54-year-old male with right lower extremity DVT and associated PE. The clot burden is high however the patient is hemodynamically stable with normal blood pressure. He is not tachycardic and is requiring minimal amount of oxygen. He never had any respiratory symptoms currently. No indication for systemic thrombolysis. Recommendations: 1. PE: Clot burden identified on the CT scan does not correlate with prognosis and given the patient's excellent hemodynamics and lack of elevated troponin, would favor continued management with heparin infusion. He can transition to oral anticoagulants within the next 24 to 48 hours based on clinical stability. Given the fact that this is his second event in this event appears to be re latively unprovoked, would recommend lifelong anticoagulation. Okay to transition to oral agents at this point in time. Correlation with case management to find a cost effective solution for the patient is recommended. Coumadin or DOAC's would be appropriate. 2. DVT: It appears that this is a chronic finding so there is no indication for catheter-based thrombolysis of the lower extremity DVT. He may require compression stockings and elevation of the leg. 3. Echo reviewed. Troponin and BNP are normal. Patient appears to be doing well clinically. Will sign off at this point time. Please feel free to contact us if we can be of additional assistance. Admission and Anticipated Discharge Date Admission Date: April 27, 2020 Subjective Patient seen and examined. He offers no complaints. He specifically denies any chest pain palpitations syncope or presyncope. He does not feel short of breath at all. His lower extremity pain is somewhat improved. Physical Exam Constitutional: WD/WN, vitals as above Neck: trachea midline, no thyromegaly Respiratory: normal respiratory effort, lungs clear to auscultation Cardiovascular: RRR, no murmur, no edema Gastrointestinal (Abdomen): normal bowel sounds, soft, nontender, no hepatosplenomegaly Skin: no rashes, warm and dry Lymphatic: no cervical lymphadenopathy Results & Data Results & Data ([facility]) Vital Signs (Past 12 Hours) Vital Signs Temp Pulse Resp BP Pulse Ox 04/29/20 07:38 36.8 C 04/29/20 04:00 36.5 C 76 22 96/71 L 93 04/29/20 00:00 36.6 C 68 18 129/77 94 Laboratory Results 04/29/20 01:55 04/29/20 01:55 BNP 769 which is normal. Serial troponins have been negative Diagnostic Findings Echocardiogram from 04/28/2020 showed an EF of 60 to 65% without regional wall motion abnormalities. No significant diastolic dysfunction. Right ventricle was mildly dilated with global hypokinesis and sparing of the apex consistent with Johnson sign. Unable to calculate right ventricular systolic pressure due to insufficient TR jet PG Care Time/CCT Total # of Minutes Spent Total Time Spent with Patient: Total time spent is greater than 50% in coordination of care (as documented) at patient's floor/unit and/or counseling patient: Coding Level of Care Code 93629 Subseq Hosp Care Lvl 2 Diagnoses Saddle pulmonary embolus I26.92 DVT (deep venous thrombosis) I82.409 Pulmonary hypertension I27.20
[2020-04-29] MEDS: INSULIN GLARGINE SOLOSTAR 100 UNITS/ML 3 ML PEN SC SCH ×2 (08:21→20:48)
[2020-04-29] MEDS: INSULIN ASPART 100 UNITS/ML 3 ML PEN SC SCH ×4 (08:23→20:48)
[2020-04-29] MEDS: oxyCODONE HCL IR 5 MG TAB (IMMEDIATE RELEASE) PO PRN ×2 (10:33→20:47)
[2020-04-29] MEDS: HEPARIN SODIUM/DEXTROSE 25,000 UNITS/500 ML BAG IV SCH (11:57)
--- NOTE | 2020-04-29 20:52 | Hospitalist Progress Note ---
Date of Service April 29, 2020 Assessment & Plan (1) Saddle pulmonary embolus: Saddle pulmonary embolism/bilateral pulmonary emboli/right heart strain/DVT of right lower extremity- This is a recurrent episode for him of DVT. He was previously treated in 01/2018 with 3 months of Eliquis for a calf DVT This is a submassive PE, hemodynamically stable, requiring minimal amount of supplemental oxygen, troponin is negative serially, not tachycardic, proBNP is negative Appreciate pulmonology consultation Echocardiogram with mildly decreased RV function, LVEF 60-65% Upon admission, his case was discussed with the ICU regarding possible need for directed TPA. Plan is to watch the patient on heparin, and if any acute decompensation directed TPA will be undertaken. -Continue IV heparin for now and awaiting cost of Xarelto as below before starting-if cost affordable, will start tomorrow in preparation for discharge to home -Consult case management to beatty out Xarelto for him to see if his cost affordable; patient prefers not to do Coumadin as he does not want to have recurrent blood draws -He will need lifelong anticoagulation-I discussed this with the patient and he did not seem too keen on the idea -Continue supplemental O2 to keep pulse ox greater than 92%-he may need home oxygen upon discharge (2) Bilateral pulmonary embolism: See above (3) Acute respiratory failure with hypoxia: Requiring supplemental O2 to keep pulse ox greater than 88-92% Secondary to saddle pulmonary embolus as above Wean off oxygen as tolerated May need oxygen at home (4) DVT (deep venous thrombosis): Right lower extremity, extensive, has some pain still in the leg Continue anticoagulation as above -Continue elevation of the leg (5) Hyperlipidemia: On no medications -Fasting lipid panel here with LDL 95, HDL 26, total cholesterol 150 (6) HTN (hypertension): Blood pressures are mildly elevated here, but he takes lisinopril for microalbuminuria in the setting of diabetes mellitus Continue lisinopril (7) Uncontrolled type 2 diabetes mellitus with microalbuminuria, with long-term current use of insulin: Significantly uncontrolled diabetes, hemoglobin A1c here is 10.1% Consult glycemic management for persistent hyperglycemia here On NPH 70/30 at home and here is now on Lantus and NovoLog (8) Phantom pain after amputation of lower extremity: Continue oxycodone as needed for pain (9) Male erectile disorder of organic origin: Was prescribed sildenafil as an outpatient for ED, not for pulmonary hypertension as per patient Discontinued scheduled sildenafil here Disposition-continued stay on PCU, but possible discharge to home tomorrow if Xarelto is cost affordable and can start that PT/OT consultations placed to see if he is able to get around on his own at home Admission and Anticipated Discharge Date Admission Date: April 27, 2020 Subjective Patient reports he feels well today. He had his oxygen off for about an hour and reports that it stayed in a good range for a while but then dropped a little bit when he was sleeping. He would prefer not to have oxygen at home if possible. He is also having some continued pain in the right calf. He is also worried that he will not be able to walk or hop around on the right leg as he usually does at home. We will consult physical therapy. Denies chest pain or shortness of breath. Does have a mild dry cough. Telemetry with normal sinus rhythm Review of Systems Review of Systems: All systems reviewed & are unremarkable except as noted in HPI & below Physical Exam Constitutional: WD/WN, vitals as above + obese; no acute distress Eyes: + anicteric sclerae Neck: trachea midline, no thyromegaly Respiratory: normal respiratory effort Auscultation: no rhonchi and no wheezes Cardiovascular: Rate/Rhythm: regular rate and regular rhythm Heart Sounds: no murmur Extremities: + edema (Trace on the right leg) Chest (Breasts): Chest: normal inspection of chest Gastrointestinal (Abdomen): normal bowel sounds, soft, nontender, no hepatosplenomegaly Musculoskeletal: Extremities: + extremities abnormal to inspection (Left lower extremity amputated), no cyanosis and no clubbing Skin: no rashes, warm and dry Neurologic: moves all extremities and awake; no focal motor deficits Psychiatric: A+Ox3, euthymic affect Lymphatic: no lymphedema Results & Data Results & Data ([facility]) Vital Signs (Past 12 Hours) Vital Signs Temp Pulse Pulse Resp BP BP Pulse Ox 04/29/20 19:00 84 20 91 04/29/20 18:20 83 20 120/82 90 04/29/20 18:00 85 22 89 L 04/29/20 17:00 82 19 95 04/29/20 16:00 76 20 93 04/29/20 15:00 36.7 C 80 78 17 140/92 94 04/29/20 14:00 74 13 92 04/29/20 13:00 75 17 93 04/29/20 12:25 36.5 C 04/29/20 12:24 93 04/29/20 12:23 140/92 94 04/29/20 12:22 129/107 H 92 04/29/20 12:00 96 04/29/20 11:59 127/103 H 93 04/29/20 10:00 65 13 92 Laboratory Results 04/29/20 04/29/20 04/29/20 Range/Units 20:38 16:18 12:33 WBC (4.8-10.8) K/uL RBC (4.7-6.1) M/uL Hgb (14.0-18.0) g/dL Hct (42-52) % MCV (80-100) fL MCH (25-34) pg MCHC (32-36) g/dL RDW Std Deviation (36.4-46.3) fL RDW Coeff of Kathrin (11.5-14.5) % Plt Count (130-400) K/uL MPV (7.4-10.4) fL Immature Gran % (Auto) % Neut % (Auto) % Lymph % (Auto) % [place] % (Auto) % Eos % (Auto) % Baso % (Auto) % Neut # (Auto) (1.4-6.5) K/uL Lymph # (Auto) (1.2-3.4) K/uL [place] # (Auto) (0.11-0.59) K/uL Eos # (Auto) (0-0.5) K/uL Baso # (Auto) (0-0.2) K/uL Immature Gran # (Auto) (0.00-0.02) K/uL PT (9.0-12.0) Seconds INR (0.9-1.1) APTT (21.0-31.0) Seconds PTT Ratio Sodium (136-145) mmol/L Potassium (3.5-5.1) mmol/L Chloride (98-107) mmol/L Carbon Dioxide (21-32) mmol/L Anion Gap (3-11) BUN (7-18) mg/dl Creatinine (0.6-1.4) mg/dl Est Cr Clr Drug Dosing ml/min Est GFR ( Amer) Est GFR (Non-Af Amer) BUN/Creatinine Ratio (10-20) Glucose (70-99) mg/dl POC Glucose 160 H 210 H (70-99) mg/dl Calcium (8.5-10.1) mg/dl Magnesium (1.8-2.4) mg/dl Total Bilirubin (0.2-1) mg/dl AST (15-37) U/L ALT (12-78) U/L Alkaline Phosphatase (45-117) U/L Troponin I < 0.015 (0-0.045) ng/ml NT-Pro-B Natriuret Pep (0-900) pg/ml Total Protein (6.4-8.2) gm/dl Albumin (3.4-5.0) gm/dl Globulin (2.5-4.0) gm/dl Albumin/Globulin Ratio (0.9-2) 04/29/20 04/29/20 04/29/20 Range/Units 11:18 07:21 01:55 WBC (4.8-10.8) K/uL RBC (4.7-6.1) M/uL Hgb (14.0-18.0) g/dL Hct (42-52) % MCV (80-100) fL MCH (25-34) pg MCHC (32-36) g/dL RDW Std Deviation (36.4-46.3) fL RDW Coeff of Kathrin (11.5-14.5) % Plt Count (130-400) K/uL MPV (7.4-10.4) fL Immature Gran % (Auto) % Neut % (Auto) % Lymph % (Auto) % [place] % (Auto) % Eos % (Auto) % Baso % (Auto) % Neut # (Auto) (1.4-6.5) K/uL Lymph # (Auto) (1.2-3.4) K/uL [place] # (Auto) (0.11-0.59) K/uL Eos # (Auto) (0-0.5) K/uL Baso # (Auto) (0-0.2) K/uL Immature Gran # (Auto) (0.00-0.02) K/uL PT (9.0-12.0) Seconds INR (0.9-1.1) APTT (21.0-31.0) Seconds PTT Ratio Sodium 140 (136-145) mmol/L Potassium 3.8 (3.5-5.1) mmol/L Chloride 107 (98-107) mmol/L Carbon Dioxide 28 (21-32) mmol/L Anion Gap 6.0 (3-11) BUN 16 (7-18) mg/dl Creatinine 1.08 (0.6-1.4) mg/dl Est Cr Clr Drug Dosing 90.4 ml/min Est GFR ( Amer) 88.5 Est GFR (Non-Af Amer) 76.3 BUN/Creatinine Ratio 15.2 (10-20) Glucose 101 H (70-99) mg/dl POC Glucose 214 H 128 H (70-99) mg/dl Calcium 8.8 (8.5-10.1) mg/dl Magnesium 2.3 (1.8-2.4) mg/dl Total Bilirubin 0.8 (0.2-1) mg/dl AST 15 (15-37) U/L ALT 22 (12-78) U/L Alkaline Phosphatase 63 (45-117) U/L Troponin I < 0.015 (0-0.045) ng/ml NT-Pro-B Natriuret Pep 769 (0-900) pg/ml Total Protein 7.1 (6.4-8.2) gm/dl Albumin 2.9 L (3.4-5.0) gm/dl Globulin 4.2 H (2.5-4.0) gm/dl Albumin/Globulin Ratio 0.7 L (0.9-2) 04/29/20 04/29/20 Range/Units 01:55 01:55 WBC 12.36 H (4.8-10.8) K/uL RBC 4.61 L (4.7-6.1) M/uL Hgb 14.1 (14.0-18.0) g/dL Hct 43.4 (42-52) % MCV 94.1 (80-100) fL MCH 30.6 (25-34) pg MCHC 32.5 (32-36) g/dL RDW Std Deviation 45.4 (36.4-46.3) fL RDW Coeff of Kathrin 13.1 (11.5-14.5) % Plt Count 284 (130-400) K/uL MPV 9.6 (7.4-10.4) fL Immature Gran % (Auto) 0.4 % Neut % (Auto) 58.0 % Lymph % (Auto) 28.7 % [place] % (Auto) 8.2 % Eos % (Auto) 4.4 % Baso % (Auto) 0.3 % Neut # (Auto) 7.17 H (1.4-6.5) K/uL Lymph # (Auto) 3.55 H (1.2-3.4) K/uL [place] # (Auto) 1.01 H (0.11-0.59) K/uL Eos # (Auto) 0.54 H (0-0.5) K/uL Baso # (Auto) 0.04 (0-0.2) K/uL Immature Gran # (Auto) 0.05 H (0.00-0.02) K/uL PT 11.9 (9.0-12.0) Seconds INR 1.1 (0.9-1.1) APTT 51.9 H* (21.0-31.0) Seconds PTT Ratio 1.9 Sodium (136-145) mmol/L Potassium (3.5-5.1) mmol/L Chloride (98-107) mmol/L Carbon Dioxide (21-32) mmol/L Anion Gap (3-11) BUN (7-18) mg/dl Creatinine (0.6-1.4) mg/dl Est Cr Clr Drug Dosing ml/min Est GFR ( Amer) Est GFR (Non-Af Amer) BUN/Creatinine Ratio (10-20) Glucose (70-99) mg/dl POC Glucose (70-99) mg/dl Calcium (8.5-10.1) mg/dl Magnesium (1.8-2.4) mg/dl Total Bilirubin (0.2-1) mg/dl AST (15-37) U/L ALT (12-78) U/L Alkaline Phosphatase (45-117) U/L Troponin I (0-0.045) ng/ml NT-Pro-B Natriuret Pep (0-900) pg/ml Total Protein (6.4-8.2) gm/dl Albumin (3.4-5.0) gm/dl Globulin (2.5-4.0) gm/dl Albumin/Globulin Ratio (0.9-2) PG Care Time/CCT Total # of Minutes Spent Total Time Spent with Patient: Total time spent is greater than 50% in coordination of care (as documented) at patient's floor/unit and/or counseling patient: Coding Level of Care Code 92266 Subseq Hosp Care Lvl 3 Diagnoses Saddle pulmonary embolus I26.92 Bilateral pulmonary embolism I26.99 Acute respiratory failure with hypoxia J96.01 DVT (deep venous thrombosis) I82.409 Hyperlipidemia E78.5 HTN (hypertension) I10 Uncontrolled type 2 diabetes mellitus with microalbuminuria, with long-term current use of insulin E11.29; E11.65; R80.9; Z79.4 Phantom pain after amputation of lower extremity G54.6 Male erectile disorder of organic origin N52.9
[2020-04-29] MEDS: lisinopril 10 MG TAB PO SCH (21:56)
[2020-04-30 05:10] LABS: Basophils # (auto) 0.04 K/uL (0-0.2); Basophils % (auto) 0.4 %; Eosinophils # (auto) 0.46 K/uL (0-0.5); Eosinophils % (auto) 4.5 %; Hematocrit (blood only) 43.5 % (42-52); Hemoglobin 14.1 g/dL (14.0-18.0); Immature Granulocytes # (auto) 0.02 K/uL (0.00-0.02); Immature Granulocytes % (auto) 0.2 %; Lymphocytes # (auto) 3.08 K/uL (1.2-3.4); Lymphocytes % (auto) 29.9 %; Mean Corpuscular Hemoglobin 30.7 pg (25-34); Mean Corpuscular Hgb Conc 32.4 g/dL (32-36); Mean Corpuscular Volume 94.6 fL (80-100); Mean Platelet Volume 9.6 fL (7.4-10.4); Monocytes # (auto) 0.82 K/uL (0.11-0.59); Neutrophils # (auto) 5.88 K/uL (1.4-6.5); Platelet Count 302 K/uL (130-400); RDW Standard Deviation 44.9 fL (36.4-46.3)
[2020-04-30] MEDS: HEPARIN SODIUM/DEXTROSE 25,000 UNITS/500 ML BAG IV SCH (05:22)
[2020-04-30 05:30] LABS: Partial Thromboplastin Ratio 1.7
[2020-04-30 05:42] LABS: Albumin Level 2.8 gm/dl (3.4-5.0); BUN Creatinine Ratio 13.8 (10-20); Calcium 8.5 mg/dl (8.5-10.1); Est GFR (African American) 87.5; Est GFR (Non-African American) 75.5; Magnesium 2.6 mg/dl (1.8-2.4)
[2020-04-30 05:45] LABS: Albumin Globulin Ratio 0.6 (0.9-2); Bilirubin,Total 0.8 mg/dl (0.2-1); Globulin 4.4 gm/dl (2.5-4.0); Total Protein 7.2 gm/dl (6.4-8.2)
--- NOTE | 2020-04-30 05:46 | Electrocardiogram Report ---
Test Reason : Blood Pressure : / mmHG Vent. Rate : 075 BPM Atrial Rate : 075 BPM P-R Int : 156 ms QRS Dur : 084 ms QT Int : 424 ms P-R-T Axes : 050 025 023 degrees QTc Int : 473 ms Normal sinus rhythm Normal ECG When compared with ECG of 28-APR-2020 07:17, No significant change was found Confirmed by Doug Gandara ([id number]) on 04/30/2020 5:46:06 AM Referred By: REFERRED SELF Confirmed By:Doug Gandara
[2020-04-30 06:05] LABS: Partial Thromboplastin Time 48.8 Seconds (21.0-31.0)
[2020-04-30] MEDS: INSULIN GLARGINE SOLOSTAR 100 UNITS/ML 3 ML PEN SC SCH ×2 (07:32→20:51)
[2020-04-30] MEDS: INSULIN ASPART 100 UNITS/ML 3 ML PEN SC SCH ×4 (08:41→20:53)
--- NOTE | 2020-04-30 14:25 | Pharmacy Report ---
Pharmacy Glycemic Short Note 2 - Date of Service April 30, 2020 - Glycemic Short BSG Results (Last 24 hours): 04/29/20 04/29/20 04/30/20 16:18 20:38 04:58 Glucose 158 H POC Glucose 210 H 160 H 04/30/20 04/30/20 07:28 11:31 Glucose POC Glucose 138 H 206 H OUTPATIENT ANTIDIABETIC REGIMEN: * 70/30 80 units BIDM * A1c: 10.1% 04/28/20 ASSESSMENT: 04/30 * Patient received 109 units yesterday, 75 of which were basal * Postprandial BSGs were somewhat elevated yesterday, will tighten carb coverage. Fasting BSG acceptable, basal insulin slightly increased. * Patient remains on a Heparin drip and is tolerating a diet 04/28 * Patient found to have DVT and Saddle PE initiated on heparin drip (in dextrose). * BSGs have been moderately elevated since admission. It does not appear that the patient received an evening dose of insulin likely contributing to this. He did receive his home dose of 80 units 70/30 this morning. I will switch to a lantus/novolog regimen while admitted for easier titration/dose changes. Lantus scale will start tonight with dinner. I am hesitant to be too aggressive with basal insulin right away given unknown true needs with an elevated A1c. * Patient is tolerating a diet and remains on heparin infusion PLAN FOR INPATIENT GLYCEMIC CONTROL: * Hold outpatient oral diabetes medications * Basal insulin * Lantus 40 units this morning * Lantus per scale 35,45,55 units units SQ BID (first dose at dinner time)- See MAR for details * Bolus insulin * NovoLog per scale ACHS or Q6hrs while NPO * Goal Range: Low 110 mg/dL - High 140 mg/dL * Correction Factor: 20 mg/dL/unit * Nutritional / Prandial insulin per carb ratio of 1 unit per 6 grams CHO consumed
--- NOTE | 2020-04-30 15:34 | Hospitalist Progress Note ---
Date of Service April 30, 2020 Assessment & Plan (1) Saddle pulmonary embolus: Saddle pulmonary embolism/bilateral pulmonary emboli/right heart strain/DVT of right lower extremity- This is a recurrent episode for him of DVT. He was previously treated in 01/2018 with 3 months of Eliquis for a calf DVT This is a submassive PE, hemodynamically stable, requiring minimal amount of supplemental oxygen and now weaned off, troponin is negative serially, not tachycardic, proBNP is negative Appreciate pulmonology consultation Echocardiogram with mildly decreased RV function, LVEF 60-65% Upon admission, his case was discussed with the ICU regarding possible need for directed TPA. Plan is to watch the patient on heparin, and if any acute decompensation directed TPA will be undertaken. Pt is agreeable to Xarelto despite high cost of $118/month, working with Xarelto rep on finding more affordable option to obtain it. Also will try to get him samples prior to discharge -dc IV heparin and start Xarelto tonight 15mg po bid x 21 days then 20 mg daily -He will need lifelong anticoagulation-I discussed this with the patient and he did not seem too keen on the idea (2) Bilateral pulmonary embolism: See above (3) Acute respiratory failure with hypoxia: Requiring supplemental O2 to keep pulse ox greater than 88-92% Secondary to saddle pulmonary embolus as above Now weaned off oxygen as tolerated (4) DVT (deep venous thrombosis): Right lower extremity, extensive, has some pain still in the leg Continue anticoagulation as above -Continue elevation of the leg (5) Hyperlipidemia: On no medications -Fasting lipid panel here with LDL 95, HDL 26, total cholesterol 150 (6) HTN (hypertension): Blood pressures are controlled, but he takes lisinopril for microalbuminuria in the setting of diabetes mellitus Continue lisinopril (7) Uncontrolled type 2 diabetes mellitus with microalbuminuria, with long-term current use of insulin: Significantly uncontrolled diabetes, hemoglobin A1c here is 10.1% Consult glycemic management for persistent hyperglycemia here On NPH 70/30 at home and here is now on Lantus and NovoLog (8) Phantom pain after amputation of lower extremity: Continue oxycodone as needed for pain (9) Male erectile disorder of organic origin: Was prescribed sildenafil as an outpatient for ED, not for pulmonary hypertension as per patient Discontinued scheduled sildenafil here Disposition-continued stay on PCU, but possible discharge to home tomorrow after obtaining samples of Xarelto PT/OT consultations appreciated and he is at his baseline for transfers Home with home health tomorrow Admission and Anticipated Discharge Date Admission Date: April 27, 2020 Subjective Pt fels well, is weaned off O2, is OOB to chair and worked with PT. Denies CP or SOB. Eating and drinking. Review of Systems Review of Systems: All systems reviewed & are unremarkable except as noted in HPI & below Physical Exam Constitutional: WD/WN, vitals as above + obese; no acute distress Eyes: + anicteric sclerae Neck: trachea midline, no thyromegaly Respiratory: normal respiratory effort Auscultation: no rhonchi and no wheezes Cardiovascular: RRR, no murmur, no edema Rate/Rhythm: regular rate and regular rhythm Heart Sounds: no murmur Extremities: + edema (Trace on the right leg) Chest (Breasts): Chest: normal inspection of chest Gastrointestinal (Abdomen): normal bowel sounds, soft, nontender, no hepatosplenomegaly Musculoskeletal: Extremities: + extremities abnormal to inspection (Left lower extremity amputated), no cyanosis and no clubbing Skin: no rashes, warm and dry Neurologic: moves all extremities and awake; no focal motor deficits Psychiatric: A+Ox3, euthymic affect Lymphatic: no lymphedema Results & Data Results & Data ([facility]) Vital Signs (Past 12 Hours) Vital Signs Temp Pulse Pulse Resp BP BP Pulse Ox 04/30/20 14:00 89 04/30/20 13:00 85 04/30/20 12:41 04/30/20 12:00 36.7 C 83 20 95 04/30/20 11:35 68 128/81 04/30/20 11:04 36.8 C 126/81 95 04/30/20 10:00 77 04/30/20 09:00 80 04/30/20 08:00 36.7 C 84 20 95 04/30/20 07:37 70 144/94 H 04/30/20 07:00 70 20 04/30/20 04:00 37.0 C 72 20 121/81 94 Pulse Ox Pulse Ox 04/30/20 14:00 04/30/20 13:00 04/30/20 12:41 94 2 L 04/30/20 12:00 04/30/20 11:35 04/30/20 11:04 04/30/20 10:00 04/30/20 09:00 04/30/20 08:00 04/30/20 07:37 04/30/20 07:00 04/30/20 04:00 Laboratory Results 04/30/20 04/30/20 04/30/20 Range/Units 11:31 07:28 04:58 WBC (4.8-10.8) K/uL RBC (4.7-6.1) M/uL Hgb (14.0-18.0) g/dL Hct (42-52) % MCV (80-100) fL MCH (25-34) pg MCHC (32-36) g/dL RDW Std Deviation (36.4-46.3) fL RDW Coeff of Kathrin (11.5-14.5) % Plt Count (130-400) K/uL MPV (7.4-10.4) fL Immature Gran % (Auto) % Neut % (Auto) % Lymph % (Auto) % Scott % (Auto) % Eos % (Auto) % Baso % (Auto) % Neut # (Auto) (1.4-6.5) K/uL Lymph # (Auto) (1.2-3.4) K/uL Scott # (Auto) (0.11-0.59) K/uL Eos # (Auto) (0-0.5) K/uL Baso # (Auto) (0-0.2) K/uL Immature Gran # (Auto) (0.00-0.02) K/uL APTT (21.0-31.0) Seconds PTT Ratio Sodium 139 (136-145) mmol/L Potassium 4.0 (3.5-5.1) mmol/L Chloride 106 (98-107) mmol/L Carbon Dioxide 29 (21-32) mmol/L Anion Gap 4.0 (3-11) BUN 15 (7-18) mg/dl Creatinine 1.09 (0.6-1.4) mg/dl Est Cr Clr Drug Dosing 90.0 ml/min Est GFR ( Amer) 87.5 Est GFR (Non-Af Amer) 75.5 BUN/Creatinine Ratio 13.8 (10-20) Glucose 158 H (70-99) mg/dl POC Glucose 206 H 138 H (70-99) mg/dl Calcium 8.5 (8.5-10.1) mg/dl Magnesium 2.6 H (1.8-2.4) mg/dl Total Bilirubin 0.8 (0.2-1) mg/dl AST 14 L (15-37) U/L ALT 22 (12-78) U/L Alkaline Phosphatase 65 (45-117) U/L Total Protein 7.2 (6.4-8.2) gm/dl Albumin 2.8 L (3.4-5.0) gm/dl Globulin 4.4 H (2.5-4.0) gm/dl Albumin/Globulin Ratio 0.6 L (0.9-2) 04/30/20 04/30/20 04/29/20 Range/Units 04:58 04:58 20:38 WBC 10.30 (4.8-10.8) K/uL RBC 4.60 L (4.7-6.1) M/uL Hgb 14.1 (14.0-18.0) g/dL Hct 43.5 (42-52) % MCV 94.6 (80-100) fL MCH 30.7 (25-34) pg MCHC 32.4 (32-36) g/dL RDW Std Deviation 44.9 (36.4-46.3) fL RDW Coeff of Kathrin 13.0 (11.5-14.5) % Plt Count 302 (130-400) K/uL MPV 9.6 (7.4-10.4) fL Immature Gran % (Auto) 0.2 % Neut % (Auto) 57.0 % Lymph % (Auto) 29.9 % Scott % (Auto) 8.0 % Eos % (Auto) 4.5 % Baso % (Auto) 0.4 % Neut # (Auto) 5.88 (1.4-6.5) K/uL Lymph # (Auto) 3.08 (1.2-3.4) K/uL Scott # (Auto) 0.82 H (0.11-0.59) K/uL Eos # (Auto) 0.46 (0-0.5) K/uL Baso # (Auto) 0.04 (0-0.2) K/uL Immature Gran # (Auto) 0.02 (0.00-0.02) K/uL APTT 48.8 H* (21.0-31.0) Seconds PTT Ratio 1.7 Sodium (136-145) mmol/L Potassium (3.5-5.1) mmol/L Chloride (98-107) mmol/L Carbon Dioxide (21-32) mmol/L Anion Gap (3-11) BUN (7-18) mg/dl Creatinine (0.6-1.4) mg/dl Est Cr Clr Drug Dosing ml/min Est GFR ( Amer) Est GFR (Non-Af Amer) BUN/Creatinine Ratio (10-20) Glucose (70-99) mg/dl POC Glucose 160 H (70-99) mg/dl Calcium (8.5-10.1) mg/dl Magnesium (1.8-2.4) mg/dl Total Bilirubin (0.2-1) mg/dl AST (15-37) U/L ALT (12-78) U/L Alkaline Phosphatase (45-117) U/L Total Protein (6.4-8.2) gm/dl Albumin (3.4-5.0) gm/dl Globulin (2.5-4.0) gm/dl Albumin/Globulin Ratio (0.9-2) // Range/Units 16:18 WBC (4.8-10.8) K/uL RBC (4.7-6.1) M/uL Hgb (14.0-18.0) g/dL Hct (42-52) % MCV (80-100) fL MCH (25-34) pg MCHC (32-36) g/dL RDW Std Deviation (36.4-46.3) fL RDW Coeff of Kathrin (11.5-14.5) % Plt Count (130-400) K/uL MPV (7.4-10.4) fL Immature Gran % (Auto) % Neut % (Auto) % Lymph % (Auto) % Scott % (Auto) % Eos % (Auto) % Baso % (Auto) % Neut # (Auto) (1.4-6.5) K/uL Lymph # (Auto) (1.2-3.4) K/uL Scott # (Auto) (0.11-0.59) K/uL Eos # (Auto) (0-0.5) K/uL Baso # (Auto) (0-0.2) K/uL Immature Gran # (Auto) (0.00-0.02) K/uL APTT (21.0-31.0) Seconds PTT Ratio Sodium (136-145) mmol/L Potassium (3.5-5.1) mmol/L Chloride (98-107) mmol/L Carbon Dioxide (21-32) mmol/L Anion Gap (3-11) BUN (7-18) mg/dl Creatinine (0.6-1.4) mg/dl Est Cr Clr Drug Dosing ml/min Est GFR ( Amer) Est GFR (Non-Af Amer) BUN/Creatinine Ratio (10-20) Glucose (70-99) mg/dl POC Glucose 210 H (70-99) mg/dl Calcium (8.5-10.1) mg/dl Magnesium (1.8-2.4) mg/dl Total Bilirubin (0.2-1) mg/dl AST (15-37) U/L ALT (12-78) U/L Alkaline Phosphatase (45-117) U/L Total Protein (6.4-8.2) gm/dl Albumin (3.4-5.0) gm/dl Globulin (2.5-4.0) gm/dl Albumin/Globulin Ratio (0.9-2) PG Care Time/CCT Total # of Minutes Spent Total Time Spent with Patient: Total time spent is greater than 50% in coordination of care (as documented) at patient's floor/unit and/or counseling patient: Coding Level of Care Code 46951 Subseq Hosp Care Lvl 3 Diagnoses Saddle pulmonary embolus I26.92 Bilateral pulmonary embolism I26.99 Acute respiratory failure with hypoxia J96.01 DVT (deep venous thrombosis) I82.409 Hyperlipidemia E78.5 HTN (hypertension) I10 Uncontrolled type 2 diabetes mellitus with microalbuminuria, with long-term current use of insulin E11.29; E11.65; R80.9; Z79.4 Phantom pain after amputation of lower extremity G54.6 Male erectile disorder of organic origin N52.9
[2020-04-30] MEDS ORDERED: WARFARIN SOD 10 MG TAB PO SCH (16:00)
[2020-04-30] MEDS: lisinopril 10 MG TAB PO SCH (20:50)
[2020-04-30] MEDS ORDERED: HEPARIN GTT~STOP ORDER ONE (21:00)
[2020-04-30] MEDS: RIVAROXABAN 15 MG TAB PO SCH (21:00)
[2020-04-30] MEDS: oxyCODONE HCL IR 5 MG TAB (IMMEDIATE RELEASE) PO PRN (22:25)
[2020-05-01] MEDS: INSULIN GLARGINE SOLOSTAR 100 UNITS/ML 3 ML PEN SC SCH (08:23)
[2020-05-01] MEDS: INSULIN ASPART 100 UNITS/ML 3 ML PEN SC SCH ×3 (08:25→16:39)
[2020-05-01] MEDS: RIVAROXABAN 15 MG TAB PO SCH (08:25)
[2020-05-01] MEDS: ACETAMINOPHEN 325 MG TAB PO PRN (10:14)
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
--- NOTE | 2020-05-01 14:42 | Pharmacy Report ---
Pharmacy Glycemic Short Note 2 - Date of Service May 01, 2020 - Glycemic Short BSG Results (Last 24 hours): 04/30/20 04/30/20 05/01/20 16:11 20:43 07:39 POC Glucose 224 H 188 H 138 H 05/01/20 11:25 POC Glucose 200 H OUTPATIENT ANTIDIABETIC REGIMEN: * 70/30 80 units BIDM * A1c: 10.1% 04/28/20 ASSESSMENT: 05/01 * Patient received 131 units yesterday, 85 of which were basal * Fasting BSG remains well controlled. Will continue current Lantus scale. * Post prandials are still somewhat elevated, Novolog scale was tightened this morning. Of note, heparin drip was d/c'd last evening. 04/30 * Patient received 109 units yesterday, 75 of which were basal * Postprandial BSGs were somewhat elevated yesterday, will tighten carb coverage. Fasting BSG acceptable, basal insulin slightly increased. * Patient remains on a Heparin drip and is tolerating a diet 04/28 * Patient found to have DVT and Saddle PE initiated on heparin drip (in dextrose). * BSGs have been moderately elevated since admission. It does not appear that the patient received an evening dose of insulin likely contributing to this. He did receive his home dose of 80 units 70/30 this morning. I will switch to a lantus/novolog regimen while admitted for easier titration/dose changes. Lantus scale will start tonight with dinner. I am hesitant to be too aggressive with basal insulin right away given unknown true needs with an elevated A1c. * Patient is tolerating a diet and remains on heparin infusion PLAN FOR INPATIENT GLYCEMIC CONTROL: * Hold outpatient oral diabetes medications * Basal insulin * Lantus per scale 35,45,55 units SQ BID -See MAR for details * Bolus insulin * NovoLog per scale ACHS or Q6hrs while NPO * Goal Range: Low 110 mg/dL - High 140 mg/dL * Correction Factor: 15 mg/dL/unit * Nutritional / Prandial insulin per carb ratio of 1 unit per 5 grams CHO consumed
== END 2020-05-01 17:10 | disposition home health service (06) | DRG 299 ==
LOC: ED 15:08 → SUATTDRO 20:45 → 1E 20:45